=== PATIENT | female | born 1965 | race Caucasian/White ===

== ENCOUNTER 2020-07-27 12:17 | Emergency (ER) | payer SELFPAY ==
--- NOTE | 2020-07-27 13:13 | ER ---
Nurse's Notes [facility] Name: Ana Lilia Alvarez Age: 54 yrs Sex: Female : 1965 Arrival Date: 07/27/2020 Time: 12:18 Bed 26 Private MD: Diagnosis: Cutaneous abscess of neck Presentation: 07/27 13:00 Chief complaint: Patient states: noticed a bite on the left backside of her neck, then iw started feeling lumps and swelling in the back of her neck , has been cleaning it with witch johnny and putting Benadryl cream on it. Coronavirus screen: At this time, the client does not indicate any symptoms associated with coronavirus-19. Ebola Screen: Patient negative for fever greater than or equal to 101.5 degrees Fahrenheit, and additional compatible Ebola Virus Disease symptoms Patient denies exposure to infectious person. Patient denies travel to an Ebola-affected area in the 21 days before illness onset. No symptoms or risks identified at this time. Initial Sepsis Screen: Does the patient meet any 2 criteria? No. Patient's initial sepsis screen is negative. Does the patient have a suspected source of infection? No. Patient's initial sepsis screen is negative. Risk Assessment: Do you want to hurt yourself or someone else? Patient reports no desire to harm self or others. Onset of symptoms was July 25, 2020. 13:00 Method Of Arrival: Ambulatory iw 13:00 Acuity: VLADIMIR 3 iw Triage Assessment: 13:00 General: Behavior is calm. iw Historical: - Allergies: 13:03 Sulfa (Sulfonamide Antibiotics); iw - Home Meds: 13:03 None [Active]; iw - PMHx: 13:03 None; iw - PSHx: 13:03 Hysterectomy; iw - Immunization history:: Adult Immunizations. - Social history:: Smoking status: unknown. Screenin:04 Abuse screen: Denies threats or abuse. Denies injuries from another. Nutritional iw screening: No deficits noted. Tuberculosis screening: No symptoms or risk factors identified. 13:15 Fall Risk None identified. iw Assessment: 13:03 Reassessment: Patient appears in no apparent distress at this time. General: Appears in iw no apparent distress. Pain: Complains of pain in neck. Neuro: Level of Consciousness is awake, alert, obeys commands, Oriented to person, place, time, situation, Moves all extremities. Full function. Cardiovascular: Patient's skin is warm and dry. Respiratory: Respiratory effort is even, unlabored, Respiratory pattern is regular, symmetrical. Derm: Skin is intact, is healthy with good turgor. Musculoskeletal: Range of motion: intact in all extremities. Vital Signs: 13:00 BP 124 / 72; Pulse 89; Resp 16; Temp 97.8; Pulse Ox 100% on R/A; iw ED Course: 12:18 Patient arrived in ED. bg2 13:03 Triage completed. iw 13:03 Connie Loza, RN is Primary Nurse. iw 13:03 Arm band placed on. iw 13:05 [facility]C [facility]. kb 13:05 Joshua Bro MD is Attending Physician. kb 13:11 Patient has correct armband on for positive identification. iw 13:20 No provider procedures requiring assistance completed. Patient did not have IV access iw during this emergency room visit. Administered Medications: 13:19 Drug: KeFLEX 500 mg Route: PO; iw Outcome: 13:12 Discharge ordered by . kb 13:20 Discharged to home ambulatory. iw 13:20 Condition: good 13:20 Discharge instructions given to patient, Instructed on discharge instructions, follow up and referral plans. medication usage, Demonstrated understanding of instructions, follow-up care, medications, Prescriptions given X 1. 13:21 Patient left the ED. iw Signatures: Ella Bruner FNP-C FNP-Ckb Williams, Irene, RN RN Grisel Rosenberg bg2
--- NOTE | 2020-07-27 13:13 | EDPHYS ---
Physician Documentation [facility] Name: Ana Lilia Alvarez Age: 54 yrs Sex: Female : 1965 Arrival Date: 07/27/2020 Time: 12:18 Bed 26 Private MD: ED Physician Joshua Bro HPI: 07/27 13:10 This 54 yrs old Female presents to ER via Ambulatory with complaints of Neck kb Problem. 13:11 The patient presents with an abscess of the left posterior aspect of neck. Description: kb erythematous, swollen, warm. Onset: The symptoms/episode began/occurred 2 day(s) ago. Possible cause(s): unknown. Associated signs and symptoms: Pertinent positives: erythema, swelling, Pertinent negatives: discharge, drainage, foreign body sensation, fever, headache, nausea, shortness of breath, vomiting. Modifying factors: the symptoms are alleviated by nothing, the symptoms are aggravated by pressure, touching. Severity of symptoms: At their worst the symptoms were mild, in the emergency department the symptoms are unchanged. The patient has not experienced similar symptoms in the past. The patient has not recently seen a physician. Historical: - Allergies: 13:03 Sulfa (Sulfonamide Antibiotics); iw - Home Meds: 13:03 None [Active]; iw - PMHx: 13:03 None; iw - PSHx: 13:03 Hysterectomy; iw - Immunization history:: Adult Immunizations. - Social history:: Smoking status: unknown. ROS: 13:09 Constitutional: Negative for fever, chills, and weight loss, Cardiovascular: Negative kb for chest pain, palpitations, and edema, Respiratory: Negative for shortness of breath, cough, wheezing, and pleuritic chest pain, Abdomen/GI: Negative for abdominal pain, nausea, vomiting, diarrhea, and constipation, MS/Extremity: Negative for injury and deformity, Neuro: Negative for headache, weakness, numbness, tingling, and seizure. 13:09 Skin: Positive for abscess, of the left posterior aspect of neck. Exam: 13:09 Constitutional: This is a well developed, well nourished patient who is awake, alert, kb and in no acute distress. Head/Face: Normocephalic, atraumatic. MS/ Extremity: Pulses equal, no cyanosis. Neurovascular intact. Full, normal range of motion. Neuro: Awake and alert, GCS 15, oriented to person, place, time, and situation. Cranial nerves II-XII grossly intact. Motor strength 5/5 in all extremities. Sensory grossly intact. Cerebellar exam normal. Normal gait. 13:09 Respiratory: the patient does not display signs of respiratory distress, Respirations: normal. 13:09 Skin: abscess, that is small, of the left posterior aspect of neck, with surrounding cellulitis, that is very mild. Vital Signs: 13:00 BP 124 / 72; Pulse 89; Resp 16; Temp 97.8; Pulse Ox 100% on R/A; iw MDM: 13:06 Patient medically screened. kb 13:09 Data reviewed: vital signs, nurses notes. Data interpreted: Pulse oximetry: on room air kb is 100 %. Interpretation: normal. Counseling: I had a detailed discussion with the patient and/or guardian regarding: the historical points, exam findings, and any diagnostic results supporting the discharge/admit diagnosis, the need for outpatient follow up, a family practitioner, to return to the emergency department if symptoms worsen or persist or if there are any questions or concerns that arise at home. Administered Medications: 13:19 Drug: KeFLEX 500 mg Route: PO; iw Disposition: 14:21 Co-signature as Attending Physician, Joshua Bro MD. rn Disposition: 07/27/20 13:12 Discharged to Home. Impression: Cutaneous abscess of neck. - Condition is Stable. - Discharge Instructions: Skin Abscess, [id number]. - Prescriptions for Keflex 500 mg Oral Capsule - take 1 capsule by ORAL route every 6 hours for 10 days; 40 capsule. - Medication Reconciliation Form, Thank You Letter, Antibiotic Education, Prescription Opioid Use form. - Follow up: Emergency Department; When: As needed; Reason: Worsening of condition. Follow up: Private Physician; When: 2 - 3 days; Reason: Recheck today's complaints, Continuance of care, Re-evaluation by your physician. Signatures: Ella Bruner FNP-C FNP-Connie Sparrow RN RN iw Joshau Bro MD MD rn angiography: (The following items were deleted from the chart) 13:21 13:12 07/27/2020 13:12 Discharged to Home. Impression: Cutaneous abscess of neck. iw Condition is Stable. Forms are Medication Reconciliation Form, Thank You Letter, Antibiotic Education, Prescription Opioid Use. Follow up: Emergency Department; When: As needed; Reason: Worsening of condition. Follow up: Private Physician; When: 2 - 3 days; Reason: Recheck today's complaints, Continuance of care, Re-evaluation by your physician. kb
[2020-07-27] MEDS ORDERED: CEPHALEXIN 250 MG CAP ONE (13:28)
[2020-07-27 14:50] VITALS: BP 124/72; TEMP 97.8; O2SAT 100
== END 2020-07-27 13:21 | disposition home or self-care (01) ==
LOC: ER 12:17
DX: L02.11 Cutaneous abscess of neck (principal)
CPT/HCPCS: 99283